=== PATIENT | male | born 2005 | race Caucasian/White ===

== ENCOUNTER 2024-05-21 07:56 | Day surgery (SDC) | payer BC ==
[~2024-05-21 07:56] MED LIST: Sodium Chloride 0.9% 10 ML Syringe FLUSH PRN; Sodium Chloride 0.9% 10 ML Syringe FLUSH SCH
[2024-05-21] MEDS: Lactated Ringers 1,000 ML IV SCH (08:10)
[2024-05-21] MEDS ORDERED: Propofol 200 MG/20 ML SDV ONE ×2 (08:46→08:55)
[2024-05-21] MEDS ORDERED: Lidocaine 2% 5 ML SDV ONE (08:54)
[2024-05-21] MEDS ORDERED: Midazolam 1 MG/ML 2 ML SDV ONE (08:55)
[2024-05-21] MEDS ORDERED: fentaNYL 100 MCG/2 ML SDV ONE (08:55)
[2024-05-21] MEDS ORDERED: Ropivacaine 0.5% 5 MG/ML 30 ML SDV ONE (09:01)
[2024-05-21] MEDS ORDERED: Bupivacaine 0.25% 10 ML SDV ONE (09:14)
[2024-05-21] MEDS ORDERED: fentaNYL 100 MCG/2 ML SDV IVPUSH PRN (09:28)
[2024-05-21] MEDS ORDERED: Ondansetron 4 MG/2 ML SDV IVPUSH PRN (09:28)
[2024-05-21] MEDS ORDERED: HYDROmorphone 0.5 MG/0.5 ML Syringe IVPUSH PRN (09:28)
[2024-05-21] MEDS ORDERED: ceFAZolin 2 GM Vial ONE (10:01)
[2024-05-21] MEDS ORDERED: Ketorolac 30 MG/ML SDV ONE (10:49)
[2024-05-21] MEDS ORDERED: Ondansetron 4 MG/2 ML SDV ONE (10:49)
[2024-05-21] MEDS: oxyCODONE 5 MG Tab PO PRN (13:45)
== END 2024-05-21 15:20 | disposition home or self-care (01) ==
LOC: JD.SDS 07:56
PROVIDERS: ATTEND Orthopaedic Surgery
DX: S82.202K Unspecified fracture of shaft of left tibia, subsequent encounter for closed fracture with nonunion (principal); H26.9 Unspecified cataract; F32.A Depression, unspecified; J45.909 Unspecified asthma, uncomplicated; E03.9 Hypothyroidism, unspecified; Z79.899 Other long term (current) drug therapy; Z88.1 Allergy status to other antibiotic agents
CPT/HCPCS: 27899; 76000; A9270; C1713; C1776; J0690; J1885; J2250; J2405; J2704; J2795; J3010; J3490; J7120; 01484; J0665